=== PATIENT | female | born 1955 | race Caucasian/White ===

== ENCOUNTER → 2019-11-18 | Outpatient (CLI) | payer BC, OTHER ==
[~2019-11-18] MED LIST: ASPIR 8181 MG PO; BYSTOLIC 5 MG5 M1 PO; CENTRUM SILVER1 EAC4 PO; FENOFIBRATE160 MG PO; FISH OIL 1,001000 M2 PO; HYDROCHLOROTHIA25 M2 PO; KLOR-CON 1010 MEQ PO; LIPITOR 20 MG T20 M1 PO
== END ==
LOC: SJCVCIMAG 10:19
DX: I45.10 Unspecified right bundle-branch block (principal); I25.10 Atherosclerotic heart disease of native coronary artery without angina pectoris; R55 Syncope and collapse; R53.83 Other fatigue; I10 Essential (primary) hypertension; E78.5 Hyperlipidemia, unspecified; Z88.0 Allergy status to penicillin; Z87.891 Personal history of nicotine dependence; Z79.82 Long term (current) use of aspirin; Z79.899 Other long term (current) drug therapy

== ENCOUNTER → 2019-11-19 | Outpatient (CLI) | payer BC, OTHER | LOC: SJCVCIMAG 13:53 | DX: I65.23 Occlusion and stenosis of bilateral carotid arteries (principal); I07.1 Rheumatic tricuspid insufficiency; R94.31 Abnormal electrocardiogram [ECG] [EKG]; I25.10 Atherosclerotic heart disease of native coronary artery without angina pectoris; Z87.891 Personal history of nicotine dependence ==

== ENCOUNTER → 2020-08-31 | Outpatient (CLI) | payer OTHER | LOC: EDSTATUS 09:15 → CAT 10:07 | PROVIDERS: ATTEND Internal Medicine Cardiovascular Disease | DX: Z13.6 Encounter for screening for cardiovascular disorders (principal); I25.10 Atherosclerotic heart disease of native coronary artery without angina pectoris; E78.00 Pure hypercholesterolemia, unspecified ==

== ENCOUNTER → 2021-04-25 | Outpatient (CLI) | payer BC, OTHER | LOC: RAD 14:04 | PROVIDERS: ATTEND Neuromusculoskeletal Medicine & OMM | DX: Z12.31 Encounter for screening mammogram for malignant neoplasm of breast (principal) ==